=== PATIENT | female | born 1980 | race Two or more races ===

== ENCOUNTER → 2020-08-13 | Emergency (ER) | payer MEDICAID, OTHER ==
[~2020-08-13] VITALS: Ht 154.9 cm; Wt 115.7 kg
[~2020-08-13] MED LIST: CEPH500T PO; IBUP-1955 PO; KETOROLAC TROMETHAMINE 15 MG/ML VIAL ONE
--- NOTE | 2020-08-13 13:28 | NUR ---
BIBS FROM HOME TO ER BED 10. AAOX4. NOT IN RESP DISTRESS. AMBULATORY. CAME IN FOR LOWER ABD PAIN RADIATING TO LEFT AND RIGHT TO THE BACK FOR THE PAST 1 WEEK. PT RATYES HER PAIN 8/10 [place]. ALSO SHE IS REPORTING THAT SHE IS HAVING URINARY FREQUENCY. MD WAS AT THE BEDSIDE FOR EVAL. ORDERS RECEIVED, NOTED AND CARRIED OUT.
--- NOTE | 2020-08-13 13:38 | NUR ---
PT TO CT ON WHEELCHAIR
[2020-08-13] MEDS: IV NS 0.9% 1,000 ML BAG IV ONE (13:41)
[2020-08-13] MEDS: KETOROLAC TROMETHAMINE INJ 30 MG/ML VIAL IV ONE (13:42)
[2020-08-13 13:47] LABS: BILIRUBIN,URINE NEGATIVE (NEGATIVE); COLOR,URINE YELLOW (YELLOW); LEUKOCYTE ESTERASE ,URINE NEGATIVE (NEGATIVE); NITRITE, URINE NEGATIVE (NEGATIVE); PH,URINE 5.5 (5.0-8.0); PROTEIN,URINE NEGATIVE (NEGATIVE); UGLUCOSE NEGATIVE (NEGATIVE); UROBILINOGEN,URINE 0.2 EU/dL (0.2)
[2020-08-13 13:57] LABS: BACTERIA,URINE Few /HPF (None Seen); RBC,URINE 0-2 /HPF (0-2); SQUAMOUS EPITHELIAL CELL,UR Few /HPF (None Seen)
[2020-08-13 14:26] LABS: BASOPHILS # (AUTO) 0.1 /CMM (0.0-0.2); BASOPHILS % (AUTO) 0.8 % (0.0-2.0); EOSINOPHILS % (AUTO) 1.8 % (0.0-6.0); HEMATOCRIT 37 % (33-45); HEMOGLOBIN 11.7 g/dL (11.5-14.8); LYMPHOCYTES # (AUTO) 4.1 /CMM (0.8-4.8); LYMPHOCYTES % (AUTO) 41.9 % (20.0-44.0); MEAN CORPUSCULAR HGB CONC 31 g/dl (31.0-36.0); MEAN CORPUSCULAR VOLUME 79 fL (82-100); MONOCYTES # (AUTO) 0.8 /CMM (0.1-1.30); MONOCYTES % (AUTO) 8.8 % (2.0-12.0); NEUTROPHILS # (AUTO) 4.5 /CMM (1.8-8.9); NEUTROPHILS % (AUTO) 46.7 % (43.0-81.0); PLATELET COUNT (AUTO) 403 /CMM (150-450); RED BLOOD CELL COUNT(AUTO) 4.71 MIL/uL (4.0-5.2); WHITE BLOOD COUNT (AUTO) 9.7 K/uL (4.3-11.0)
[2020-08-13 14:40] LABS: CALCIUM, SERUM 9.2 mg/dL (8.5-10.1); CREATININE 0.9 mg/dL (0.6-1.3); POTASSIUM 3.6 mmol/L (3.5-5.1)
[2020-08-13 14:45] LABS: ALBUMIN 3.5 g/dL (3.4-5.0); BILIRUBIN,DIRECT 0.1 mg/dL (0.0-0.2); BILIRUBIN,TOTAL 0.2 mg/dL (0.2-1.0); TOTAL PROTEIN, SERUM 8.8 g/dL (6.4-8.2)
[2020-08-13 15:11] VITALS: BP 128/54
--- NOTE | 2020-08-13 15:11 | NUR ---
Patient discharged to home in stable condition. Written and verbal after care instructions given. Patient verbalizes understanding of instruction. IV removed. Catheter intact and site benign. Pressure and 4x4 applied to site. No bleeding noted. Patient discharged to home in stable condition. Written and verbal after care instructions given. Patient verbalizes understanding of instruction. VSS STABLE
== END | disposition home or self-care (01) ==
LOC: ER 13:01
DX: N39.0 Urinary tract infection, site not specified (principal); K76.0 Fatty (change of) liver, not elsewhere classified; R74.01 Elevation of levels of liver transaminase levels; Z90.710 Acquired absence of both cervix and uterus; Z79.899 Other long term (current) drug therapy
CPT/HCPCS: 36415; 74176; 80048; 80076; 81001; 83690; 84703; 85025; 96361; 96374; 99284; J1885; J7030